=== PATIENT | male | born 1930 | race Caucasian/White ===

== ENCOUNTER 2018-12-23 10:29 | Inpatient (IN) | payer MEDICARE ==
[~2018-12-23] VITALS: Ht 162.6 cm; Wt 69.9 kg
--- NOTE | 2018-12-23 10:35 | NUR ---
GERALD JONES [facility] ASSISTED LIVING FOR WEAKNESS AND LOSS OF APPETITE X 1 WEEK, TO ER BED 7, HOOKED TO MONITOR, CHANGED TO MELVIN, AWAITING MD VIRK
[2018-12-23] MEDS ORDERED: METF-440 PO (10:55)
[2018-12-23] MEDS ORDERED: DONE10TA44 PO (10:55)
[2018-12-23] MEDS ORDERED: ERGO500014 PO (10:55)
[2018-12-23] MEDS ORDERED: BENA20TA9 PO (10:55)
[2018-12-23] MEDS ORDERED: SITA100T PO (10:55)
[2018-12-23] MEDS ORDERED: ATOR20TA PO (10:55)
[2018-12-23] MEDS ORDERED: FINA5TAB3 PO (10:55)
[2018-12-23] MEDS ORDERED: SERT25TA PO (10:55)
[2018-12-23] MEDS ORDERED: ACET-73 PO (10:55)
[2018-12-23] MEDS ORDERED: TRAM50TA2 PO (10:55)
[2018-12-23] MEDS ORDERED: IV NS 0.9% 1,000 ML BAG IV ONE (11:30)
[2018-12-23] MEDS ORDERED: ONDANSETRON HCL/PF 4 MG/2 ML VIAL IVP ONE (11:30)
[2018-12-23 11:36] LABS: BASOPHILS % (AUTO) 0.7 % (0.0-2.0); EOSINOPHILS % (AUTO) 3.6 % (0.0-6.0); HEMATOCRIT 33 % (39-51); LYMPHOCYTES # (AUTO) 1.4 /CMM (0.8-4.8); LYMPHOCYTES % (AUTO) 21.9 % (20.0-44.0); MEAN CORPUSCULAR HGB CONC 33 g/dl (31.0-36.0); MEAN CORPUSCULAR VOLUME 96 fL (80-96); MONOCYTES # (AUTO) 0.7 /CMM (0.1-1.30); NEUTROPHILS # (AUTO) 3.9 /CMM (1.8-8.9); NEUTROPHILS % (AUTO) 61.8 % (43.0-81.0); PLATELET COUNT (AUTO) 147 /CMM (150-450); RED BLOOD CELL COUNT(AUTO) 3.44 MIL/uL (4.5-6.0); WHITE BLOOD COUNT (AUTO) 6.3 K/uL (4.3-11.0)
[2018-12-23] MEDS ORDERED: ONDANSETRON HCL/PF 4 MG/2 ML VIAL ONE (11:38)
--- NOTE | 2018-12-23 11:39 | NUR ---
CALLED FOR MED-SURGE BED, TURNED IN MOVE SHEET
[2018-12-23 11:42] LABS: CALCIUM, SERUM 8.8 mg/dL (8.5-10.1); CARBON DIOXIDE 25 mmol/L (21-32); CHLORIDE 106 mmol/L (98-107); CREATININE 1.8 mg/dL (0.6-1.3); GLUCOSE 91 mg/dL (74-106); POTASSIUM 5.2 mmol/L (3.5-5.1); SODIUM SERUM 139 mmol/L (136-145); UREA NITROGEN, BLOOD 30 mg/dL (7-18)
[2018-12-23 11:48] LABS: ALANINE AMINOTRANSFERASE 14 U/L (12-78); ALBUMIN 3.5 g/dL (3.4-5.0); ALKALINE PHOSPHATASE 86 U/L (46-116); ASPARTATE AMINOTRANSFERASE 16 U/L (15-37); BILIRUBIN,DIRECT 0.1 mg/dL (0.0-0.2); BILIRUBIN,TOTAL 0.4 mg/dL (0.2-1.0); LIPASE 198 U/L (73-393); TOTAL PROTEIN, SERUM 6.7 g/dL (6.4-8.2)
--- NOTE | 2018-12-23 12:08 | NUR ---
MED-SURGE BED 322
--- NOTE | 2018-12-23 12:32 | NUR ---
PAGED DR LANG
--- NOTE | 2018-12-23 13:12 | NUR ---
REPORT GIVEN TO [place] FOR SONIA
--- NOTE | 2018-12-23 13:32 | NUR ---
ADMISSION NOTE PT WAS BROUGHT UP AT THIS TIME VIA FABRICE, A/O X1-2 SPANSIH SPEAKING, BREATHING EVEN AND UNLABORED ON RA, NO S/S OF ANY DISTRESS OR PAIN AT THIS TIME, IV IS PATENT AND INTACT, SAFETY PRECAUTIONS IN PLACE, CALL LIGHT WITHIN REACH, WILL MONITOR PT ACCORDINGLY
[2018-12-23] MEDS ORDERED: Z GUARD REMEDY 2 OZ OINT TP PRN (15:00)
[2018-12-23] MEDS ORDERED: ZOLPIDEM TARTRATE 5 MG TABLET PO PRN (15:00)
[2018-12-23] MEDS ORDERED: HYDROCODONE/APAP 5/325MG 1 EACH TABLET PO PRN (15:00)
[2018-12-23] MEDS ORDERED: TRAMADOL HCL 50 MG TABLET PO PRN (15:00)
[2018-12-23] MEDS ORDERED: MAGNESIUM HYDROXIDE 30 ML UDC PO PRN (15:00)
[2018-12-23] MEDS ORDERED: ALBUTEROL FS 2.5 MG/3 ML VIAL.NEB NEB PRN (15:00)
[2018-12-23] MEDS ORDERED: ACETAMINOPHEN 325 MG TABLET PO PRN (15:00)
[2018-12-23] MEDS ORDERED: MAG HYDROX/AL HYDROX/SIMETH 30 ML UDC PO PRN (15:00)
[2018-12-23] MEDS ORDERED: DEXTROSE 50%-WATER 50 ML DISP.SYRIN IV PRN (15:00)
[2018-12-23] MEDS ORDERED: ONDANSETRON HCL/PF 4 MG/2 ML VIAL IVP PRN (15:00)
[2018-12-23] MEDS: IV D5/0.45 NACL 1,000 ML IV PRN (15:55)
[2018-12-23] MEDS: ENSURE ENLIVE 237 ML LIQUID (VANILLA) PO SCH (16:03)
[2018-12-23] MEDS: MEGESTROL ACETATE SUSP 400 MG/10 ML UDC PO SCH (16:03)
[2018-12-23] MEDS: INSULIN REGULAR, HUMAN 100 UNIT/ML 3 ML VIAL SQ PRN ×2 (17:32→21:39)
[2018-12-23] MEDS: BLOOD SUGAR DIAGNOSTIC 1 EACH STRIP IN SCH ×2 (17:32→21:43)
--- NOTE | 2018-12-23 17:32 | NUR ---
RN NOTE PT BLOOD GLUCOSE WAS NOTED TO BE 133 AT THIS TIME, NO INSULIN GIVEN DUE TO PT HAVING LOSS OF APPETITE AND NOT WANTING TO EAT MUCH FOOD, WILL MONITOR ACCORDINGLY
--- NOTE | 2018-12-23 18:19 | NUR ---
RN CLOSING NOTE PT IN BED AT LOWEST AND LOCKED POSITION WITH SIDE RAILS UP, A/O X1 CONFUSED [place] ISLANDER SPEAKING BREATHING EVEN AND UNLABORED ON RA WITH NO PAIN OR DISTRESS AT THIS TIME, IV IS PATENT AND INTACT, SAFETY PRECAUTIONS IN PLACE, CALL LIGHT WITHIN REACH, ALL NEEDS ATTENDED TO, WILL ENDORSE TO NIGHT RN FOR SONIA.
--- NOTE | 2018-12-23 18:40 | NUR ---
RN NOTE PT REMOVED IV AT THIS TIME, NEW IV INSERTED IN LEFT FA #20 AT THIS TIME
--- NOTE | 2018-12-23 19:10 | NUR ---
MS RN OPENING NOTES Received patient in bed, alert, oriented x 1, trying to get out of bed. Reorientation as needed. Breathing even and unlabored. Not in any distress. Peripheral IV infusing at 150mL/hr. Safety measures in place; call light within reach, bed in low, locked position, bed alarm on. Will continue to monitor accordingly
[2018-12-23 20:00] VITALS: BP 152/73
--- NOTE | 2018-12-23 21:02 | NUR ---
RN NOTES Patient pulled out IV line. New IV inserted on LAC g#20.
--- NOTE | 2018-12-23 21:40 | NUR ---
RN NOTES BSL- 167mg/dL. 3 units of insulin given per sliding scale. [place] juice given
[2018-12-24] MEDS: IV D5/0.45 NACL 1,000 ML IV PRN ×3 (00:15→17:16)
--- NOTE | 2018-12-24 06:47 | NUR ---
MS RN CLOSING NOTES Patient sleeping in bed, easy to arouse. Breathing even and unlabored. Not in any distress. Peripheral IV infusing at 150mL/hr. BSL checked- 105mg/dL. No insulin given per sliding scale. Patient gets confused, reorientation given as needed. All needs attended. Safety measures maintained. Will endorse SONIA to oncoming RN
[2018-12-24 06:50] LABS: APPEARANCE,URINE CLOUDY (CLEAR); BILIRUBIN,URINE NEGATIVE (NEGATIVE); BLOOD, URINE 2+ Ery/uL (NEGATIVE); KETONES,URINE NEGATIVE (NEGATIVE); LEUKOCYTE ESTERASE ,URINE 3+ (NEGATIVE); NITRITE, URINE NEGATIVE (NEGATIVE); PH,URINE 6.5 (5.0-8.0); PROTEIN,URINE 2+ mg/dl (NEGATIVE); UGLUCOSE NEGATIVE (NEGATIVE); UROBILINOGEN,URINE 0.2 EU/dL (0.2)
--- NOTE | 2018-12-24 07:11 | NUR ---
RN OPENING NOTE PT RECEIVED IN BED AT LOWEST AND LOCKED POSITION WITH SIDE RAILS UP, A/O X1 CONFUSED ROMANSH SPEAKING, BREATHING EVEN AND UNLABORED ON RA WITH NO PAIN OR DISTRESS AT THIS TIME, IV IS PATENT AND INTACT WITH IVF RUNNING, SAFETY PRECAUTIONS IN PLACE, CALL LIGHT WITHIN REACH, WILL MONITOR PT ACCORDINGLY
[2018-12-24 07:18] LABS: BACTERIA,URINE Many /HPF (None Seen); WBC,URINE 81-100 /HPF (0-3)
[2018-12-24 07:19] LABS: SQUAMOUS EPITHELIAL CELL,UR Rare /HPF (None Seen)
[2018-12-24 07:30] LABS: COLOR,URINE STRAW (YELLOW)
[2018-12-24] MEDS: BLOOD SUGAR DIAGNOSTIC 1 EACH STRIP IN SCH ×4 (07:31→22:40)
[2018-12-24 07:51] LABS: BASOPHILS % (AUTO) 0.5 % (0.0-2.0); EOSINOPHILS % (AUTO) 2.9 % (0.0-6.0); HEMATOCRIT 29 % (39-51); HEMOGLOBIN 9.9 g/dL (13.5-17.5); LYMPHOCYTES # (AUTO) 1.4 /CMM (0.8-4.8); LYMPHOCYTES % (AUTO) 20.5 % (20.0-44.0); MEAN CORPUSCULAR HGB CONC 34 g/dl (31.0-36.0); MEAN CORPUSCULAR VOLUME 94 fL (80-96); MONOCYTES # (AUTO) 0.7 /CMM (0.1-1.30); MONOCYTES % (AUTO) 9.9 % (2.0-12.0); NEUTROPHILS # (AUTO) 4.4 /CMM (1.8-8.9); NEUTROPHILS % (AUTO) 66.2 % (43.0-81.0); PLATELET COUNT (AUTO) 138 /CMM (150-450); RED BLOOD CELL COUNT(AUTO) 3.09 MIL/uL (4.5-6.0); WHITE BLOOD COUNT (AUTO) 6.6 K/uL (4.3-11.0)
[2018-12-24 08:00] VITALS: BP 140/69
[2018-12-24 08:02] LABS: CALCIUM, SERUM 8.2 mg/dL (8.5-10.1); CREATININE 1.2 mg/dL (0.6-1.3); MAGNESIUM 1.8 mg/dL (1.8-2.4); PHOSPHORUS 2.6 mg/dL (2.5-4.9); POTASSIUM 4.2 mmol/L (3.5-5.1)
[2018-12-24] MEDS: ENSURE ENLIVE 237 ML LIQUID (VANILLA) PO SCH ×3 (08:29→16:13)
[2018-12-24] MEDS: ATORVASTATIN 10 MG TABLET PO SCH (08:37)
[2018-12-24] MEDS: MEGESTROL ACETATE SUSP 400 MG/10 ML UDC PO SCH ×2 (08:37→16:12)
[2018-12-24] MEDS: FINASTERIDE (5 MG) 5 MG TABLET PO SCH (08:38)
[2018-12-24] MEDS: BENAZEPRIL HCL 10 MG TABLET PO SCH (08:38)
[2018-12-24] MEDS: DONEPEZIL 5 MG TABLET PO SCH (08:38)
[2018-12-24] MEDS: SERTRALINE HCL 25 MG TABLET PO SCH (08:38)
[2018-12-24 08:42] LABS: CREATININE, URINE 31.7 MG/DL (30.0-125.0); URINE TOTAL PROTEIN 90.9 mg/dL (0-11.9)
[2018-12-24] MEDS: CEFTRIAXONE 1 G in IV D5W 50 ML IV SCH (10:35)
[2018-12-24] MEDS: INSULIN REGULAR, HUMAN 100 UNIT/ML 3 ML VIAL SQ PRN ×3 (11:55→22:42)
[2018-12-24 16:00] VITALS: BP 135/69
--- NOTE | 2018-12-24 18:10 | NUR ---
RN CLOSING NOTE PT IN BED AT LOWEST AND LOCKED POSITION WITH SIDE RAILS UP, A/O X1 CONFUSED SENEGALESE SPEAKING, BREATHING EVEN AND UNLABORED ON RA WITH NO PAIN OR DISTRESS AT THIS TIME, IV IS PATENT AND INTACT WITH IVF RUNNING, FAMILY AT BEDSIDE SAFETY PRECAUTIONS IN PLACE, CALL LIGHT WITHIN REACH, ALL NEEDS ATTENDED TO, WILL ENDORSE TO NIGHT RN FOR SONIA.
--- NOTE | 2018-12-24 19:01 | NUR ---
Patient has hx of dementia and psychosis. He resides at the [facility] in [place] [phone]. Prior to admission, he was ambulating with a walker and requires mod-max assist with adl's. No homehealth reported. Will discuss with pcp regarding appropriate discharge disposition- SNF vs back to [facility]. Addendum: 12/24/18 at 1901 by ROBERT FISHMAN RN Amended: Links added.
--- NOTE | 2018-12-24 19:15 | NUR ---
MS/RN NOTES RECEIVED PT. LYING IN BED RESTING. PT. IS EASILY AROUSABLE TO NAME AND TOUCH. PT. IS AWAKE, ALERT AND ORIENTED TO SELF, CONFUSED. BREATHING EVEN AND UNLABORED ON ROOM AIR. NO SOB, RESPIRATORY DISTRESS OR COMPLAINTS OF PAIN NOTED AT THIS TIME. PT. WITH LEFT AC 20 GAUGE PERIPHERAL IV PRESENT, PATENT AND INTACT ADMINISTERING TO PT. D5 1/2 NS @150ML/HR. BED LOCKED AND IN LOWEST POSITION, SIDE RAILS UP X3, BED ALARM ON, CALL LIGHT WITHIN REACH, WILL CONTINUE TO MONITOR.
[2018-12-24 20:51] VITALS: BP 124/54
[2018-12-25 06:53] LABS: BASOPHILS % (AUTO) 0.6 % (0.0-2.0); EOSINOPHILS % (AUTO) 3.4 % (0.0-6.0); HEMATOCRIT 31 % (39-51); HEMOGLOBIN 10.3 g/dL (13.5-17.5); LYMPHOCYTES # (AUTO) 1.8 /CMM (0.8-4.8); MEAN CORPUSCULAR HGB CONC 34 g/dl (31.0-36.0); MEAN CORPUSCULAR VOLUME 94 fL (80-96); MONOCYTES # (AUTO) 0.7 /CMM (0.1-1.30); MONOCYTES % (AUTO) 11.8 % (2.0-12.0); NEUTROPHILS # (AUTO) 3.4 /CMM (1.8-8.9); NEUTROPHILS % (AUTO) 55.2 % (43.0-81.0); PLATELET COUNT (AUTO) 142 /CMM (150-450); RED BLOOD CELL COUNT(AUTO) 3.25 MIL/uL (4.5-6.0); WHITE BLOOD COUNT (AUTO) 6.2 K/uL (4.3-11.0)
--- NOTE | 2018-12-25 06:55 | NUR ---
MS/RN NOTES PT. IS LYING IN BED RESTING. BREATHING EVEN AND UNLABORED ON ROOM AIR. NO SOB, RESPIRATORY DISTRESS OR COMPLAINTS OF PAIN NOTED AT THIS TIME. PT. WITH LEFT AC 20 GAUGE PERIPHERAL IV PRESENT, PATENT AND INTACT ADMINISTERING TO PT. D5 1/2 NS @150ML/HR. ALL PT. NEEDS MET. BED LOCKED AND IN LOWEST POSITION, SIDE RAILS UP X3, BED ALARM ON, CALL LIGHT WITHIN REACH, WILL ENDORSE TO DAYSHIFT NURSE FOR CONTINUITY OF CARE.
--- NOTE | 2018-12-25 07:15 | NUR ---
MS RN NOTES RECEIVED PATIENT IN BED, ASLEEP BUT AROUSABLE TO VERBAL AND TACTILE STIMULI. HOB ELEVATED. ORIENTED X1. BELARUSIAN SPEAKING WITH ANESTHETIC ASSISTANT UTILIZED. LAC # 20 INTACT AND PATENT INFUSING D5 1/2 NS @ 150ML/HR. BED IN LOWEST POSITION, LOCKED. BED SIDERAILS UPX2. CALL LIGHT WITHIN REACH.
[2018-12-25 07:19] LABS: ALBUMIN 2.9 g/dL (3.4-5.0); BILIRUBIN,TOTAL 0.4 mg/dL (0.2-1.0); CALCIUM, SERUM 8.2 mg/dL (8.5-10.1); CREATININE 1.1 mg/dL (0.6-1.3); MAGNESIUM 1.7 mg/dL (1.8-2.4); PHOSPHORUS 3.3 mg/dL (2.5-4.9); POTASSIUM 4.4 mmol/L (3.5-5.1); TOTAL PROTEIN, SERUM 5.9 g/dL (6.4-8.2)
[2018-12-25] MEDS: BLOOD SUGAR DIAGNOSTIC 1 EACH STRIP IN SCH ×4 (07:25→21:42)
[2018-12-25] MEDS: ENSURE ENLIVE 237 ML LIQUID (VANILLA) PO SCH ×3 (09:08→17:32)
[2018-12-25] MEDS: MEGESTROL ACETATE SUSP 400 MG/10 ML UDC PO SCH ×2 (09:09→17:32)
[2018-12-25] MEDS: ATORVASTATIN 10 MG TABLET PO SCH (09:09)
[2018-12-25] MEDS: DONEPEZIL 5 MG TABLET PO SCH (09:09)
[2018-12-25] MEDS: FINASTERIDE (5 MG) 5 MG TABLET PO SCH (09:09)
[2018-12-25] MEDS: BENAZEPRIL HCL 10 MG TABLET PO SCH (09:10)
[2018-12-25] MEDS: SERTRALINE HCL 25 MG TABLET PO SCH (09:12)
[2018-12-25] MEDS: IV D5/0.45 NACL 1,000 ML IV PRN ×2 (10:06→21:19)
[2018-12-25] MEDS: CEFTRIAXONE 1 G in IV D5W 50 ML IV SCH (10:28)
[2018-12-25] MEDS: Magnesium 1GM/D5W 100ML PREMIX 100 ML IV SCH ×2 (11:58→13:11)
[2018-12-25] MEDS: INSULIN REGULAR, HUMAN 100 UNIT/ML 3 ML VIAL SQ PRN ×2 (12:39→17:39)
[2018-12-25 16:09] VITALS: BP 11/55
--- NOTE | 2018-12-25 18:55 | NUR ---
MS RN CLOSING NOTES PATIENT IN BED, ASLEEP BUT AROUSABLE TO VERBAL AND TACTILE STIMULI. HOB ELEVATED. NO SOB. FAMILY AT BEDSIDE. ORIENTED X1. KHMER SPEAKING WITH TAX FORM PREPARER UTILIZED. ASSISTED WITH MEALS, BRO WELL WITH FAIR INTAKE DURING MEALS. LAC # 20 INTACT AND PATENT INFUSING D5 1/2 NS @ 150ML/HR. DENIES ANY C/O PAIN NOR DISCOMFORT. BED IN LOWEST POSITION, LOCKED. BED SIDERAILS UPX2. CALL LIGHT WITHIN REACH. IN NO APPARENT DISTRESS.
--- NOTE | 2018-12-25 19:40 | NUR ---
RN OPENING NOTES RECEIVED PATIENT IN BED, AWAKE, COMFORTABLE. SOUTH AFRICAN SPEAKING. ORIENTED X1. NO SIGNS OF RESPIRATORY DISTRESS. NO SIGNS OF SHORTNESS OF BREATH. LAC #20 INTACT PATENT WITH D5 1/2 NS RUNNING AT 150 ML/HR. DENIES PAIN OR DISCOMFORT AT THIS TIME. SAFETY PRECAUTIONS IMPLEMENTED; CALL LIGHT WITHIN REACH, BED LOWEST POSITION, BED LOCKED, SIDE RAILS UP X2. WILL CONTINUE TO MONITOR.
[2018-12-25 20:00] VITALS: BP 135/90
--- NOTE | 2018-12-25 21:45 | NUR ---
RN NOTES PATIENT PULLED OUT LAC #20. WILL REINSERT NEW IV.
--- NOTE | 2018-12-25 22:33 | NUR ---
RN NOTES REESTABLISHED NEW IV SITE LAC #20G. FLUSHED AND PATENT. IVF INFUSING.
[2018-12-26] MEDS: IV D5/0.45 NACL 1,000 ML IV PRN (04:43)
[2018-12-26 06:25] LABS: BASOPHILS % (AUTO) 0.4 % (0.0-2.0); EOSINOPHILS % (AUTO) 2.7 % (0.0-6.0); HEMATOCRIT 33 % (39-51); HEMOGLOBIN 11.1 g/dL (13.5-17.5); LYMPHOCYTES # (AUTO) 1.5 /CMM (0.8-4.8); LYMPHOCYTES % (AUTO) 24.4 % (20.0-44.0); MEAN CORPUSCULAR HGB CONC 34 g/dl (31.0-36.0); MEAN CORPUSCULAR VOLUME 95 fL (80-96); MONOCYTES # (AUTO) 0.7 /CMM (0.1-1.30); MONOCYTES % (AUTO) 11.2 % (2.0-12.0); NEUTROPHILS # (AUTO) 3.8 /CMM (1.8-8.9); NEUTROPHILS % (AUTO) 61.3 % (43.0-81.0); PLATELET COUNT (AUTO) 140 /CMM (150-450); RED BLOOD CELL COUNT(AUTO) 3.48 MIL/uL (4.5-6.0); WHITE BLOOD COUNT (AUTO) 6.2 K/uL (4.3-11.0)
[2018-12-26] MEDS: INSULIN REGULAR, HUMAN 100 UNIT/ML 3 ML VIAL SQ PRN ×4 (06:39→22:16)
[2018-12-26 06:40] LABS: CALCIUM, SERUM 8.2 mg/dL (8.5-10.1); MAGNESIUM 1.9 mg/dL (1.8-2.4); PHOSPHORUS 2.7 mg/dL (2.5-4.9); POTASSIUM 3.8 mmol/L (3.5-5.1)
--- NOTE | 2018-12-26 06:47 | NUR ---
RN CLOSING NOTES PATIENT IS CURRENTLY RESTING IN BED, COMFORTABLE, AWAKE. NO SIGNS OF RESPIRATORY DISTRESS. NO SHORTNESS OF BREATH NOTED. NO SIGNS OF FACIAL GRIMACING OR DISCOMFORT INDICATING PAIN AT THIS TIME. PATIENT WITH IV SITE RAC #20G INTACT AND PATENT, WITH D5 1/2 NS @150 ML/HR. PATIENT KEPT CLEAN, DRY, AND COMFORTABLE. ALL NEEDS MET AT THIS TIME. SAFETY PRECAUTIONS IMPLEMENTED; CALL LIGHT WITHIN REACH, BED LOWEST POSITION, BED LOCKED, SIDE RAILS UP X3, BED ALARM ACTIVATED. WILL ENDORSE TO DAYSCAFT NURSE FOR CONTINUITY OF CARE.
--- NOTE | 2018-12-26 07:39 | NUR ---
MS RN OPENING NOTES RECEIVED PATIENT IN BED, ASLEEP, AROUSABLE TO VERBAL AND TACTILE STIMULI. HOB ELEVATED. NO SOB OBSERVED. DENIES ANY C/O PAIN NOR DISCOMFORT. LAO SPEAKING WITH FIRMWARE TEST ENGINEER UTILIZED. RAC # 20 INTACT AND PATENT INFUSING D5 1/2 NS @ 150ML/HR. BED SIDERAILS UPX2. BED IN LOWEST POSITION, LOCKED. CALL LIGHT WITHIN REACH. BED ALARM ON.
--- NOTE | 2018-12-26 07:40 | NUR ---
MS RN NOTES BS CHECKED BY NOC SHIFT NURSE 151MG/DL AND GAVE 2 UNITS OF INSULIN ORDERED.
[2018-12-26 08:00] VITALS: BP 157/70
[2018-12-26] MEDS: BLOOD SUGAR DIAGNOSTIC 1 EACH STRIP IN SCH ×4 (08:21→22:13)
[2018-12-26] MEDS: MEGESTROL ACETATE SUSP 400 MG/10 ML UDC PO SCH ×2 (08:22→17:15)
[2018-12-26] MEDS: FINASTERIDE (5 MG) 5 MG TABLET PO SCH (08:22)
[2018-12-26] MEDS: ENSURE ENLIVE 237 ML LIQUID (VANILLA) PO SCH ×3 (08:23→17:15)
[2018-12-26] MEDS: DONEPEZIL 5 MG TABLET PO SCH (08:23)
[2018-12-26] MEDS: SERTRALINE HCL 25 MG TABLET PO SCH (08:23)
[2018-12-26] MEDS: ATORVASTATIN 10 MG TABLET PO SCH (08:23)
[2018-12-26] MEDS: BENAZEPRIL HCL 10 MG TABLET PO SCH (08:24)
[2018-12-26] MEDS: CEFTRIAXONE 1 G in IV D5W 50 ML IV SCH (11:09)
[2018-12-26 16:00] VITALS: BP 119/66
--- NOTE | 2018-12-26 19:16 | NUR ---
MS RN CLOSING NOTES PATIENT RESTING COMFORTABLY IN BED. HOB ELEVATED. NO SOB OBSERVED. DENIES ANY C/O PAIN NOR DISCOMFORT. TONGAN SPEAKING WITH SENIOR POLICY ASSOCIATE UTILIZED. FAMILY AT BEDSIDE. OBSERVED PATIENT LAUGHING AND CONVERSING WITH FAMILY MEMBERS. ATE MEALS WITH FAIR INTAKE REQUIRING ASSISTANCE DURING MEAL TIMES. RAC SL # 20 INTACT AND PATENT. IN NO APPARENT DISTRESS. BED SIDERAILS UPX2. BED IN LOWEST POSITION, LOCKED. CALL LIGHT WITHIN REACH. BED ALARM ON.
--- NOTE | 2018-12-26 19:30 | NUR ---
MS RN NOTES RECEIVED ON BED A/O X1,CONFUSED AND RESTLESS.FALL PRECAUTION OBSERVED.BED ON LOWEST POSITION AND LOCKED.SALINE LOCK RIGHT AC INTACT AND PATENT.CALL LIGHT IN REACH,NEEDS ANTICIPATED.
[2018-12-26 20:02] VITALS: BP 128/68
[2018-12-26 20:10] VITALS: BP 128/68
--- NOTE | 2018-12-26 22:16 | NUR ---
MS RN NOTES ACCU-CHECK BLOOD SUGAR CHECK 232,COVERED WITH HUMULIN R 4 UNITS PER SLIDING SCALE.SNACKS PROVIDED
--- NOTE | 2018-12-27 03:00 | NUR ---
MS RN NOTES SLEEPING,KEPT WARM AND COMFORTABLE.
[2018-12-27] MEDS: BLOOD SUGAR DIAGNOSTIC 1 EACH STRIP IN SCH ×4 (05:56→21:58)
--- NOTE | 2018-12-27 06:00 | NUR ---
MS RN NOTES ACCU-CHECK BLOOD SUGAR CHECK 137,COVERED WITH HUMULIN R 2 UNITS PER SLIDING SCALE, GIVEN SQ ON LEFT DELTOID
[2018-12-27] MEDS: INSULIN REGULAR, HUMAN 100 UNIT/ML 3 ML VIAL SQ PRN ×4 (06:03→22:00)
[2018-12-27 06:23] LABS: BASOPHILS % (AUTO) 0.4 % (0.0-2.0); EOSINOPHILS % (AUTO) 2.5 % (0.0-6.0); HEMATOCRIT 31 % (39-51); HEMOGLOBIN 10.4 g/dL (13.5-17.5); LYMPHOCYTES # (AUTO) 1.8 /CMM (0.8-4.8); LYMPHOCYTES % (AUTO) 26.8 % (20.0-44.0); MEAN CORPUSCULAR HGB CONC 34 g/dl (31.0-36.0); MEAN CORPUSCULAR VOLUME 94 fL (80-96); MONOCYTES # (AUTO) 0.8 /CMM (0.1-1.30); MONOCYTES % (AUTO) 12.7 % (2.0-12.0); NEUTROPHILS # (AUTO) 3.8 /CMM (1.8-8.9); NEUTROPHILS % (AUTO) 57.6 % (43.0-81.0); PLATELET COUNT (AUTO) 138 /CMM (150-450); RED BLOOD CELL COUNT(AUTO) 3.25 MIL/uL (4.5-6.0); WHITE BLOOD COUNT (AUTO) 6.5 K/uL (4.3-11.0)
--- NOTE | 2018-12-27 06:23 | NUR ---
MS RN NOTES NO SIGNIFICANT CHANGE IN STATUS.SLEPT WELL,ABLE TO REPOSITION SELF.NO FALL,CALL LIGHT IN REACH,NEEDS ATTENDED.POSSIBLE D/C TO [facility].WILL ENDORSE TO DAY NURSE FOR SONIA.
[2018-12-27 06:44] LABS: ALBUMIN 2.7 g/dL (3.4-5.0); BILIRUBIN,TOTAL 0.3 mg/dL (0.2-1.0); CALCIUM, SERUM 8.2 mg/dL (8.5-10.1); CREATININE 1.3 mg/dL (0.6-1.3); MAGNESIUM 1.7 mg/dL (1.8-2.4); PHOSPHORUS 3.2 mg/dL (2.5-4.9); POTASSIUM 4.6 mmol/L (3.5-5.1); TOTAL PROTEIN, SERUM 5.7 g/dL (6.4-8.2)
--- NOTE | 2018-12-27 07:28 | NUR ---
MS RN OPENING NOTE PATIENT IN BED RESTING COMFORTABLY. PATIENT IN NO ACUTE DISTRESS. NO SOB NOTED. PATIENT BREATHING IS EVEN AND UNLABORED. SAFETY PRECAUTIONS IN PLACE. PATIENT BED ALARM IS ON. PATIENT BED IS LOCKED AND IN LOWEST POSITION. CALL LIGHT WITHIN REACH. WILL CONTINUE TO MONITOR.
[2018-12-27 07:35] VITALS: BP 133/73
[2018-12-27] MEDS: ATORVASTATIN 10 MG TABLET PO SCH (08:25)
[2018-12-27] MEDS: MEGESTROL ACETATE SUSP 400 MG/10 ML UDC PO SCH ×2 (08:25→16:44)
[2018-12-27] MEDS: ENSURE ENLIVE 237 ML LIQUID (VANILLA) PO SCH ×3 (08:26→16:38)
[2018-12-27] MEDS: SERTRALINE HCL 25 MG TABLET PO SCH (08:26)
[2018-12-27] MEDS: DONEPEZIL 5 MG TABLET PO SCH (08:26)
[2018-12-27] MEDS: BENAZEPRIL HCL 10 MG TABLET PO SCH (08:26)
[2018-12-27] MEDS: FINASTERIDE (5 MG) 5 MG TABLET PO SCH (08:26)
[2018-12-27] MEDS: Magnesium 1GM/D5W 100ML PREMIX 100 ML IV SCH ×2 (09:48→10:48)
--- NOTE | 2018-12-27 11:35 | NUR ---
MS RN NOTE DR. LOVE WHOM COVERING FOR DR. PULLIAM WAS NOTIFIED THAT HE IS COVERING FOR THIS PATIENT. HE IS MADE AWARE. DURING HOSPITALIZATION [facility] HAS BEEN ROUNDING FOR THIS PATIENT. DR. LANG HAS BEEN ROUNDING WELL, AND IS MADE AWARE OF THE SITUATION. Addendum: 12/27/18 at 1142 by LEFTY BLISS RN DR. LOVE AWARE THIS IS DR. SOTOMAYOR PATIENT FROM [facility]. DR. LANG AWARE DR. LOVE IS COVERING.
[2018-12-27] MEDS: CEFTRIAXONE 1 G in IV D5W 50 ML IV SCH (11:49)
[2018-12-27 12:07] LABS: *SPE A/G RATIO 1.4 (0.7-1.7); *SPE ALBUMIN 3.2 g/dL (2.9-4.4); *SPE ALPHA-1-GLOBULIN 0.2 g/dL (0.0-0.4); *SPE ALPHA-2-GLOBULIN 0.6 g/dL (0.4-1.0); *SPE BETA GLOBULIN 0.7 g/dL (0.7-1.3); *SPE GLOBULIN, TOTAL 2.3 g/dL (2.2-3.9); *SPE M-SPIKE Not Observed g/dL (Not Observed); *SPEGAMMA GLOBULIN 0.8 g/dL (0.4-1.8)
[2018-12-27 15:54] VITALS: BP 95/54
--- NOTE | 2018-12-27 18:59 | NUR ---
MS RN CLOSING NOTE PATIENT IN BED RESTING COMFORTABLY. PATIENT IN NO ACUTE DISTRESS. NO SOB NOTED. PATIENT BREATHING IS EVEN AND UNLABORED. PATIENT KEPT CLEAN, DRY, COMFORTABLE AND REPOSITIONED Q2H. PATIENT EXTREMITIES OFFLOADED ON PILLOWS THROUGHOUT SHIFT. ALL NURSING NEEDS MET. HOB IS ELEVATED. BED ALARM IS ON. SAFETY PRECAUTIONS IN PLACE. PATIENT BED IS LOCKED AND IN LOWEST POSITION. CALL LIGHT WITHIN REACH. WILL ENDORSE CARE TO PM SHIFT FOR SONIA.
[2018-12-27 20:00] VITALS: BP 112/54
[2018-12-27 20:01] VITALS: BP 112/54
--- NOTE | 2018-12-27 20:02 | NUR ---
recieved alert orientated X1 -2 answers questions in Dominican, but able to male himself clear. Not aware he is in the Hospital. Offered him water and drank and swallowed w/o problem. Smiles. Bed alarm on and call light within his reach. Resp even and unlabored,
--- NOTE | 2018-12-28 05:06 | NUR ---
ENDING NOTES: SLEPT THRU THE NIGHT. AT THE BEGINNING OF THE SHIFT HE SMILED AND WAS FRIENDLY AND ENJOYED THE ATTENTION. BED ALARM ON FOR SAFETY. NOTICED NEEDS TO BE OFFERED FLUIDS OR HE WON'T ATTEMPT TO DRINK JUICE OR WATER. SWALLOWS W/O PROBLEMS
[2018-12-28] MEDS: BLOOD SUGAR DIAGNOSTIC 1 EACH STRIP IN SCH ×2 (06:40→12:17)
[2018-12-28] MEDS: INSULIN REGULAR, HUMAN 100 UNIT/ML 3 ML VIAL SQ PRN ×2 (06:44→12:19)
[2018-12-28 06:52] LABS: CALCIUM, SERUM 8.2 mg/dL (8.5-10.1); CREATININE 1.3 mg/dL (0.6-1.3); MAGNESIUM 2.3 mg/dL (1.8-2.4); PHOSPHORUS 3.4 mg/dL (2.5-4.9); POTASSIUM 4.5 mmol/L (3.5-5.1)
--- NOTE | 2018-12-28 07:08 | NUR ---
MS RN NOTES PATIENT IN BED ALERT ORIENTED X 1-2. NO ACUTE DISTRESS NOTED. BREATHING UNLABORED. IV ACCESS PATENT AND INTACT, NO REDNESS OR SWELLING NOTED. SAFETY MEASURES IN PLACE. CALL LIGHT WITHIN REACH. WILL CONTINUE TO MONITOR ACCORDINGLY.
[2018-12-28 07:30] LABS: BASOPHILS % (AUTO) 0.4 % (0.0-2.0); EOSINOPHILS % (AUTO) 2.3 % (0.0-6.0); HEMATOCRIT 30 % (39-51); LYMPHOCYTES # (AUTO) 1.7 /CMM (0.8-4.8); LYMPHOCYTES % (AUTO) 23.7 % (20.0-44.0); MEAN CORPUSCULAR HGB CONC 34 g/dl (31.0-36.0); MEAN CORPUSCULAR VOLUME 95 fL (80-96); MONOCYTES # (AUTO) 0.8 /CMM (0.1-1.30); NEUTROPHILS # (AUTO) 4.4 /CMM (1.8-8.9); NEUTROPHILS % (AUTO) 62.6 % (43.0-81.0); PLATELET COUNT (AUTO) 134 /CMM (150-450); WHITE BLOOD COUNT (AUTO) 7.1 K/uL (4.3-11.0)
[2018-12-28 08:00] VITALS: BP 124/65
[2018-12-28] MEDS: ENSURE ENLIVE 237 ML LIQUID (VANILLA) PO SCH ×2 (08:56→12:18)
[2018-12-28] MEDS: MEGESTROL ACETATE SUSP 400 MG/10 ML UDC PO SCH (08:57)
[2018-12-28] MEDS: DONEPEZIL 5 MG TABLET PO SCH (08:57)
[2018-12-28] MEDS: FINASTERIDE (5 MG) 5 MG TABLET PO SCH (08:57)
[2018-12-28] MEDS: ATORVASTATIN 10 MG TABLET PO SCH (08:57)
[2018-12-28 08:58] VITALS: BP 124/65
[2018-12-28] MEDS: BENAZEPRIL HCL 10 MG TABLET PO SCH (08:58)
[2018-12-28] MEDS: SERTRALINE HCL 25 MG TABLET PO SCH (08:58)
[2018-12-28] MEDS: CEFTRIAXONE 1 G in IV D5W 50 ML IV SCH (11:19)
[2018-12-28] MEDS ORDERED: MEGE400O4 PO (12:02)
[2018-12-28] MEDS ORDERED: CEFT1FRO2 IV (12:02)
--- NOTE | 2018-12-28 14:05 | NUR ---
MS RN NOTES PAT[facility], REPORT GIVEN TO REEMA VASQUEZ . DISCHARGE INSTRUCTIONS HANDED OVER TO EMT PERSONNEL. PATIENT WITH STABLE VITAL SIGNS, NO ACUTE DISTRESS NOTED ON PATIENT. NO SOB NOTED. IV ACCESS REMOVED, NO BLEEDING, NO REDNESS, NO SWELLING NOTED. ALL BELONGINGS ACCOUNTED FOR. SKIN IS INTACT. PICKED UP VIA AMBULANCE IN A GURNEY ACCOMPANIED BY 2 EMT PERSONNEL IN STABLE CONDITION.
[2018-12-28 15:08] LABS: PTH, INTACT 24 pg/mL (15-65)
== END 2018-12-28 14:05 | DRG 682 ==
LOC: ER 10:37 → MED 12:16
PROVIDERS: ADMIT Internal Medicine; ATTEND Nurse Practitioner Acute Care
DX: N17.0 Acute kidney failure with tubular necrosis (principal); G93.41 Metabolic encephalopathy; N39.0 Urinary tract infection, site not specified; R62.7 Adult failure to thrive; E11.22 Type 2 diabetes mellitus with diabetic chronic kidney disease; I12.9 Hypertensive chronic kidney disease with stage 1 through stage 4 chronic kidney disease, or unspecified chronic kidney disease; N18.9 Chronic kidney disease, unspecified; E87.5 Hyperkalemia; D69.6 Thrombocytopenia, unspecified; E83.42 Hypomagnesemia; E78.5 Hyperlipidemia, unspecified; F41.9 Anxiety disorder, unspecified; G30.9 Alzheimer's disease, unspecified; F02.80 Dementia in other diseases classified elsewhere, unspecified severity, without behavioral disturbance, psychotic disturbance, mood disturbance, and anxiety; Z73.6 Limitation of activities due to disability; N40.0 Benign prostatic hyperplasia without lower urinary tract symptoms; Z79.84 Long term (current) use of oral hypoglycemic drugs; F39 Unspecified mood [affective] disorder; N13.9 Obstructive and reflux uropathy, unspecified; B96.89 Other specified bacterial agents as the cause of diseases classified elsewhere
CPT/HCPCS: 36415; 71045-TC; 76770-TC; 80048-TC; 80053-TC; 80061-TC; 80076-TC; 81000-TC; 82550-TC; 82570-TC; 82962-TC; 83690-TC; 83735-TC; 83970; 84100-TC; 84155; 84155-TC; 84165; 84300-TC; 85025-TC; 87040-TC; 87081-TC; 87086-TC; 87186-TC; 97110-TC; 97116-TC; 97530-TC; G0378; J0696; J1815; J2405; J3475; J3490; J7030; J7060